=== PATIENT | female | born 1960 | race Caucasian/White ===

== ENCOUNTER 2019-09-28 12:38 | Outpatient (CLI) | payer OTHER, SELFPAY ==
[2019-09-28 16:59] LABS: Basophils % 0.5 %; Eosinophils # 0.2 10^3/uL (0.0-0.8); Eosinophils % 2.8 %; Hematocrit 36.5 % (37.0-47.0); Hemoglobin 11.9 g/dL (11.5-15.3); Lymphocytes # 1.9 10^3/uL (0.8-4.8); Lymphocytes % 29.8 %; Mean Corpuscular HGB Conc 32.6 g/dL (30.0-36.0); Mean Corpuscular Hemoglobin 31.7 pg (28.0-34.0); Mean Corpuscular Volume 97.3 fL (81-99); Monocytes # 0.6 10^3/uL (0.2-0.9); Monocytes % 9.8 %; Neutrophils # 3.6 10^3/uL (1.8-7.7); Neutrophils % 56.8 %; Nucleated Red Blood Cells % 0 %; Platelet Count 235 10^3/cmm (130-400); Red Blood Count 3.75 10^6/uL (4.1-5.3); Red Cell Distribution Width 12.6 % (12.1-15.1); White Blood Count 6.4 10^3/uL (4.0-10.0)
[2019-09-28 21:03] LABS: Alanine Aminotransferase 61 U/L (0-33); Albumin Level 4.1 g/dL (3.5-5.2); Alkaline Phosphatase 75 IU/L (35-105); Anion Gap 16.6 (5-19); Aspartate Amino Transferase 48 U/L (0-32); Blood Urea Nitrogen 15 mg/dL (8-23); Calcium 9.2 mg/dL (8.5-10.5); Carbon Dioxide 26 mmol/L (22-29); Chloride 101 mmol/L (98-107); Globulin 2.1 g/dL (1.3-4.6); Glomerular Filtration Rate 72.9 mL/min (90-130); Glucose 115 mg/dL (65-115); Lactate Dehydrogenase 240 U/L (135-214); Osmolality Calculated 287 mOsm/kg (285-295); Potassium 3.6 mmol/L (3.5-5.1); Sodium 140 mmol/L (136-145); Total Protein 6.2 g/dL (6.6-8.7)
== END 2019-09-28 12:39 | disposition home or self-care (01) ==
LOC: ONCMED 17:09
PROVIDERS: Family Provider Nurse Practitioner Family; PCP Nurse Practitioner Family; Visit Provider Internal Medicine Medical Oncology
DX: C81.90 Hodgkin lymphoma, unspecified, unspecified site (principal)
CPT/HCPCS: 36415; 80053; 83615; 85025

== ENCOUNTER 2019-10-26 11:40 | Outpatient (CLI) | payer OTHER, SELFPAY ==
--- NOTE | 2019-10-26 11:42 | MM_ITS ---
WS: [id number] SCREENING DIGITAL MAMMOGRAM WITH CAD HISTORY: SCREEN COMPARISON: 09/21/2018, 09/18/2017 and 09/17/2016 Bilateral CC and MLO views submitted. Computer aided detection analyzed. Breast composition: There are scattered areas of fibroglandular density. No suspicious masses, microc alcifications or architectural distortion. Benign calcifications in each breast. MM/[place] [id number] IMPRESSION: BI-RADS: 2-Benign FOLLOW UP: 1 Year Follow-up
== END 2019-10-26 11:41 | disposition home or self-care (01) ==
LOC: RADSHAW 11:40
PROVIDERS: Family Provider Nurse Practitioner Family; PCP Nurse Practitioner Family; Visit Provider Internal Medicine Medical Oncology
DX: Z12.31 Encounter for screening mammogram for malignant neoplasm of breast (principal)
CPT/HCPCS: 77067

== ENCOUNTER 2020-06-13 15:05 | Emergency (ER) | payer OTHER, SELFPAY ==
[2020-06-13 15:15] VITALS: BP 140/83; PULSE 76; RESP 16; TEMP 36.2; O2SAT 97; BMI 24.0
--- NOTE | 2020-06-13 17:03 | CTR_ITS ---
PROCEDURE INFORMATION: Exam: CT Lumbar Spine Without Contrast Exam date and time: 06/13/2020 5:31 PM Age: 59 years old Clinical indication: Low back pain; Prior surgery; Surgery type: Gb TECHNIQUE: Imaging protocol: Computed tomography images of the lumbar spine without contrast. Total images: 452 Radiation optimization: All CT scans at this facility use at least one of these dose optimization techniques: automated exposure control; mA and/or kV adjustment per patient size (includes targeted exams where dose is matched to clinical indication); or iterative reconstruction. COMPARISON: No relevant prior studies available. RADIATION DOSE METRICS: Total DLP (mGy-cm): 2133.2 FINDINGS: Vertebrae: No acute fracture. Normal alignment. No visible spondylolysis or spondylolisthesis. No visible significant facet arthrosis. No visible osteolytic or osteoblastic destructive process. Discs/Spinal canal/Neural foramina: Intervertebral disc space heights preserved. No significant disc protrusion. No severe spinal canal stenosis. No significant neural foraminal narrowing. Soft tissues: Unremarkable. CT/CT lumbar spine wo con* [id number] IMPRESSION: No acute findings. Radiation Dose CTDIVOL = (mGy): DLP = 2133.2 (mGy-cm)
[2020-06-13] MEDS: HYDROcodone-acetaminophen 5-325 mg Tablet 1 TAB PO (17:17)
[2020-06-13] MEDS: cyclobenzaprine 10 mg Tablet PO (17:19)
--- NOTE | 2020-06-13 17:37 | W.ED.BACK ---
HPI - Back Pain/Injury General: Chief Complaint: Back Pain/Injury Stated Complaint: back pain Time Seen by Provider: 06/13/20 16:49 Source: patient Mode of arrival: ambulatory Limitations: no limitations History of Present Illness: HPI Narrative: Marisol is a 59-year-old female who comes in complaining of back pain. Pain is located in the right SI area but radiates down the back of her leg to her knee. She denies any loss of bowel or bladder control. She denies any saddle anesthesia. She denies any abdominal pain, urinary symptoms or trauma. Describes the pain as a soreness but she will occasionally get sharp shooting pains. Patient denies having anything like this similarly in the past. Associated symptoms: Deny abdominal pain, chills, difficulty walking, dysuria, fatigue, fever(s), hematuria, nausea, syncope, urinary urgency or vomiting Review of Systems Const: Denies: fever(s), chills, body aches, fatigue, malaise or diaphoresis Eyes: Denies: change in vision, blurry vision, photophobia, eye discomfort, eye discharge, eye redness or yellow eyes ENMT: Denies: throat pain, odynophagia, hoarseness, swelling of lips/tongue, ear or mastoid pain, ear discharge, change in hearing or nasal discharge Card: Denies: chest pain, palpitations, irregular heart rhythm, edema, lightheadedness, syncope, pre-syncope, dyspnea on exertion or orthopnea Resp: Denies: dyspnea, productive cough, non-productive cough, wheezing, hemoptysis or chest congestion GI: Denies: abdominal pain, nausea, vomiting, hematemesis, coffee ground emesis, heartburn, diarrhea, constipation, GI cramping, hematochezia or melena : Denies: flank pain, dysuria, urinary frequency, urinary urgency or hematuria Musc: Reports: back pain; Denies: neck pain, extremity pain, extremity swelling, joint pain, joint swelling, joint redness, joint warmth or joint stiffness Skin/Breast: Denies: rash, pruritus, erythema, skin pain or skin tenderness Neuro: Denies: headache(s), numbness in extremities, weakness in extremities, sensory changes, lack of coordination, difficulty walking, dizziness, vertigo, confusion, Slurred speech present or seizure-like activity Cornell/Lymph: Denies: easy bruising, easy bleeding, petechiae, purpura or enlarged lymph nodes All/Imm: Denies: urticaria, throat swelling, tongue swelling, facial swelling or acute wheezing PFSH ED PFSH: Surgical History H/O: hysterectomy History of appendectomy History of cholecystectomy Family History Other CAD (coronary artery disease) Cancer Social History Smoking and tobacco status: never smoked Alcohol intake: never Substance/Drug Use: never Lives independently: Yes Marital status: Physical Exam Const: COMMON NORMALS: no acute distress, patient oriented x3, no limitations and alert GENERAL APPEARANCE: cooperative HENMT: COMMON NORMALS: normocephalic, atraumatic, external ears normal, EAC's normal and Normal external nose present HEAD & SCALP: normal to inspection, normocephalic and atraumatic FACE & SINUS: normal facial exam and face symmetric NOSE: Normal external nose present and Normal nares present EXTERNAL EAR: Yes external ears normal EXTERNAL AUDITORY CANAL: EAC's normal MOUTH: Normal oral and palatal mucosa present, lip normal and tongue normal Eye: COMMON NORMALS: Equal, round and reactive pupils present and conjunctivae normal GENERAL EYE: appearance normal, both eyes and all related structures ALIGNMENT: Yes alignment normal PERIORBITAL: periorbital findings normal EYELID: eyelids normal CONJUNCTIVA: Yes conjunctivae normal SCLERA: sclerae normal PUPIL: Yes Equal, round and reactive pupils present Neck/C-Spine: COMMON NORMALS: full ROM, no lymphadenopathy, supple, no meningeal signs and no JVD GENERAL: Yes normal visual inspection and Yes trachea midline Chest: COMMONS NORMALS: normal inspection of the chest and normal palpation of entire chest wall Resp: COMMON NORMALS: normal respiratory effort, No retractions, No use of accessory muscles and clear to auscultation bilaterally EFFORT & INSPECTION: Yes able to speak in complete sentences and Yes symmetric chest movement AUSCULTATION: clear to auscultation bilaterally, no crackles, no rales, no rhonchi and no wheezes Cardio: COMMON NORMALS: no JVD, regular rate, regular rhythm, S1 normal heart sound present and S2 normal heart sound present RATE: regular rate RHYTHM: regular rhythm HEART SOUNDS: S1 normal heart sound present, S2 normal heart sound present, no click, no gallops, no murmurs and no rubs GI: COMMON NORMALS: Soft to palpation and No hepatosplenomegaly present PALPATION: Yes Soft to palpation, No Tenderness to palpation present (GI), No Guarding due to palpation present (GI), No Rigid due to palpation, Yes No hepatosplenomegaly present, No Hernia present, No Palpable mass present and No Pulsatile mass present : COMMON NORMALS: Yes no CVA tenderness BLADDER/KIDNEY EXAM: Yes no CVA tenderness EXTERNAL FEMALE EXAM: No Hernia present Back/Pelvis: COMMON NORMALS: no CVA tenderness, thoracic and lumbar spine normal to inspection, no thoracic nor lumbar tenderness and thoraco-lumbar ROM normal Extremity: COMMON NORMALS: normal to inspection, full ROM, capillary refill normal, no joint enlargement, no clubbing, cyanosis or edema and no calf tenderness Neuro: COMMON NORMALS: patient oriented x3, CN's II-XII intact bilaterally, moves all extremities, no focal motor deficits and no sensory deficits noted SENSORIUM/ORIENTATION: Yes alert MENINGEAL SIGNS: Yes no meningeal signs SPEECH: speech normal Psych: COMMON NORMALS: mental status grossly normal, Normal thought process present, cooperative, normal affect, speech normal and activity/motor behavior normal SPEECH: Yes normal speech THOUGHT PROCESS: Normal thought process present Skin: COMMON NORMALS: no rashes or lesions noted, turgor normal, no jaundice, no petechiae and no mottling GENERAL SKIN EXAM: no rashes or lesions noted and turgor normal Course Vital Signs: Vital signs: Vital Signs Temperature 97.1 F L 06/13/20 15:15 Pulse Rate 76 06/13/20 15:15 Respiratory Rate 16 06/13/20 15:15 Blood Pressure 140/83 06/13/20 15:15 Pulse Oximetry 97 06/13/20 15:15 MDM - Back Pain/Injury MDM Narrative: Medical decision making narrative: Patient is relieved to hear there is no recurrence of her cancer. I see no sign of CRAFTI as a cause for her pain. I will go and discharge her home with medicine for muscle relaxation, pain and anti-inflammatories. She agrees to return should her symptoms change or worsen but at this time I see no red flags or indication for further work-up or evaluation and care. Lab Data: Attestation: I reviewed the patient's lab results. Labs: Lab Results 06/13/20 Range/Units 17:29 Urine Color Yellow (Yellow) Urine Appearance Clear (CLEAR) Urine pH 5 (5-7) Ur Specific Gravit y 1.020 (1.005-1.030) Urine Protein Neg (Negative) Urine Glucose (UA) Norm (Normal) Urine Ketones Negative (Negative) Urine Blood Neg (Negative) Urine Nitrate Negative (Negative) Urine Bilirubin 1+ H (Negative) Urine Urobilinogen 1 H (Negative) mg/dL Ur Leukocyte Jannette ase Negative (Negative) Imaging Data^: CT Lumbar Spine: Radiologist's impression: [id number] [address] [address] Scan Report Signed Patient: Marisol Engel Unit #: [id number] : 1960 Age/Sex: 59 / F ADM Date: 06/13/20 Loc: ER Room/Bed: Attending Dr: Ordering Provider/Ordering MD: Marzena Jose DO Date of Service: 06/13/20 Procedure(s): CT lumbar spine wo con* [id number] Accession Number(s): [id number] Report Number: [id number] PROCEDURE INFORMATION: Exam: CT Lumbar Spine Without Contrast Exam date and time: 06/13/2020 5:31 PM Age: 59 years old Clinical indication: Low back pain; Prior surgery; Surgery type: Gb TECHNIQUE: Imaging protocol: Computed tomography images of the lumbar spine without contrast. Total images: 452 Radiation optimization: All CT scans at this facility use at least one of these dose optimization techniques: automated exposure control; mA and/or kV adjustment per patient size (includes targeted exams where dose is matched to clinical indication); or iterative reconstruction. COMPARISON: No relevant prior studies available. RADIATION DOSE METRICS: Total DLP (mGy-cm): 2133.2 FINDINGS: Vertebrae: No acute fracture. Normal alignment. No visible spondylolysis or spondylolisthesis. No visible significant facet arthrosis. No visible osteolytic or osteoblastic destructive process. Discs/Spinal canal/Neural foramina: Intervertebral disc space heights preserved. No significant disc protrusion. No severe spinal canal stenosis. No significant neural foraminal narrowing. Soft tissues: Unremarkable. CT/CT lumbar spine wo con* [id number] IMPRESSION: No acute findings. Radiation Dose CTDIVOL = (mGy): DLP = 2133.2 (mGy-cm) Dictated By: Dwayne Pascual Signed By: Dwayne Pascual Signed Date/Time: 06/13/201831 DD/ 29 Discharge Plan Discharge Patient Disposition: Home Clinical Impression: Back pain Condition: Stable Prescriptions: New hydrocodone-acetaminophen [Mckenney] 5-325 mg tablet 1 tab PO Q6H PRN (Reason: pain) 5 Days Qty: 20 RF: 0 naproxen 250 mg tablet 500 mg PO BID PRN (Reason: pain) Qty: 20 RF: 0 cyclobenzaprine 10 mg tablet 10 mg PO TID PRN (Reason: muscle spasm) Qty: 30 RF: 0 No Action montelukast [Singulair] 10 mg tablet 10 mg PO DAILY@2100 RF: 0 potassium chloride 10 mEq capsule, extended release 10 meq PO DAILY@0600 RF: 0 lisinopril 5 mg tablet 5 mg PO DAILY@0600 RF: 0 B Complex Tablet Extended Release 1 tab PO DAILY@0600 RF: 0 Mg-Fadi-Zinc 1 tab PO DAILY@0600 RF: 0 Discharge Orders: Discharge ED (Routine); Ordered 06/13/20 Ordered By: Marzena Jose Referrals: Sandrine Sandoval FNP-C [Primary Care Provider] - 1-3 days Discharge Diet: Advance as tolerated Discharge Activity: Increase activity as tolerated Patient Instructions: Back Pain (ED) Activity Restrictions/Additional Instructions: Please return to the ER immediately for any of the signs or symptoms listed on your discharge instruction sheets, worsening/changing of your symptoms, you are not getting better as quickly as expected, or for ANY other cause or concerns. Return to the ER for increased back pain, loss of bowel or bladder control, fever, abdominal pain, vomiting, numbness or weakness in your legs, or for any other cause for concern. Coding Level of Care Code ED Ticketing Agent for Shoaib Fwd Exam Comprehensive
[2020-06-13 18:28] LABS: Add Urine Microscopic? NO
[2020-06-13 18:34] LABS: Bilirubin Urine 1+ (Negative); Blood Urine Neg (Negative); Glucose Urine UA Norm (Normal); Ketones Urine Negative (Negative); Leukocyte Esterase Urine Negative (Negative); Nitrate Urine Negative (Negative); Protein Urine Neg (Negative); Urine Appearance Clear (CLEAR); Urine Color Yellow (Yellow); Urobilinogen Urine 1 mg/dL (Negative); pH Urine 5 (5-7)
[2020-06-13 19:04] VITALS: BP 123/70; PULSE 70; O2SAT 96
== END 2020-06-13 19:10 | disposition home or self-care (01) ==
PROVIDERS: Emergency Provider Emergency Medicine; PCP Nurse Practitioner Family
DX: M54.9 Dorsalgia, unspecified (principal)
CPT/HCPCS: 12345; 72131; 81003; 99281; 99283

== ENCOUNTER → 2020-09-29 14:01 | Outpatient (BNVA) | payer OTHER, SELFPAY | PROVIDERS: PCP Nurse Practitioner Family; Visit Provider Nurse Practitioner Family | DX: R39.9 Unspecified symptoms and signs involving the genitourinary system (principal); M54.5 Low back pain | CPT/HCPCS: 81000 ==

== ENCOUNTER → 2020-10-02 10:29 | Outpatient (BNVA) | payer OTHER, SELFPAY | PROVIDERS: PCP Nurse Practitioner Family; Visit Provider Nurse Practitioner Family | DX: R53.83 Other fatigue (principal); H65.193 Other acute nonsuppurative otitis media, bilateral; I10 Essential (primary) hypertension; J30.89 Other allergic rhinitis | CPT/HCPCS: 80053; 82306; 82607; 83550; 85025 ==

== ENCOUNTER 2020-10-05 16:07 | Emergency (ER) | payer OTHER, SELFPAY ==
[2020-10-05 16:14] VITALS: BP 128/85; PULSE 75; RESP 14; TEMP 35.7; O2SAT 100; BMI 24.9
--- NOTE | 2020-10-05 16:42 | PC.NURSE ---
BS checked POC- 134.
[2020-10-05 16:46] LABS: Glucose Point of Care 134 mg/dL (70-110)
[2020-10-05 17:33] VITALS: BP 140/89; PULSE 63; O2SAT 99
--- NOTE | 2020-10-05 17:50 | W.ED.WEAKNES ---
Documented by User: Weston Lewis DO 10/06/20 10:18 HPI - Weakness General: Chief complaint: Weakness Stated complaint: WEAK, N/V/D, NUMBNESS IN HANDS/LEGS Time Seen by Provider: 10/05/20 17:13 History of Present Illness: HPI Narrative: 60-year-old female comes in complaining of just feeling weak and fatigued for the last 2 weeks. She had recently seen her PCP and was told she was vitamin D deficient and was started on medication for that today she is complaining of generalized vague nausea with one episode of vomiting this morning fatigue and weakness numbness and tingling in her legs. She denies chest pain or shortness of breath no specific abdominal pain no dysuria urgency or frequency. No hematemesis coffee-ground emesis MD Complaint: generalized weakness and lack of energy Onset (ago): day(s) Duration: constant Location: generalized Migration: none Severity: mild Quality: aching Relieving factors: none Exacerbating factors: none Associated symptoms: Denies chest pain, chills, confusion, melena, decreased appetite, diaphoresis, dysuria, easy bruising, fever(s), headache(s), myalgias, nausea, rash, short of breath, syncope or vomiting Review of Systems Const: Denies: fever(s), chills or diaphoresis ENMT: Denies: throat pain, ear or mastoid pain, nasal discharge or nasal congestion Card: Denies: chest pain or syncope Resp: Denies: dyspnea, productive cough or non-productive cough GI: Denies: nausea, vomiting or melena : Denies: dysuria Skin/Breast: Denies: rash or pruritus Neuro: Denies: headache(s) or confusion Cornell/Lymph: Denies: easy bruising PFSH ED PFSH: Surgical History H/O: hysterectomy History of appendectomy History of cholecystectomy Family History Other CAD (coronary artery disease) Cancer Social History Smoking and tobacco status: never smoked Alcohol intake: never Adopted: No Lives independently: Yes Household members: none Housing: House Marital status: Number of children: 2 Highest education level completed: High School Graduate service: No Current occupational status: employed Pets and animals: No Current gender identity: Female Physical Exam Const: COMMON NORMALS: no acute distress GENERAL APPEARANCE: cooperative and comfortable ORIENTATION/CONSCIOUSNESS: Yes awake, Yes oriented to person, Yes oriented to place and Yes oriented to time HENMT: COMMON NORMALS: normocephalic, atraumatic, hearing grossly normal bilaterally, external ears normal, EAC's normal, TM's normal bilaterally, Normal nasal mucous membranes and turbinates present, moist oral mucous membranes and oropharynx normal HEAD & SCALP: normocephalic and atraumatic NOSE: Normal nasal mucous membranes and turbinates present EXTERNAL EAR: Yes external ears normal EXTERNAL AUDITORY CANAL: EAC's normal TYMPANIC MEMBRANE: TM's normal bilaterally Eye: COMMON NORMALS: Equal, round and reactive pupils present, EOMs intact bilaterally, conjunctivae normal and no scleral icterus CONJUNCTIVA: Yes conjunctivae normal PUPIL: Yes Equal, round and reactive pupils present Neck/C-Spine: COMMON NORMALS: no JVD Resp: COMMON NORMALS: normal respiratory effort, No retractions, No use of accessory muscles and clear to auscultation bilaterally AUSCULTATION: clear to auscultation bilaterally Cardio: COMMON NORMALS: no JVD, regular rate, regular rhythm and No murmurs present (Cardio) RATE: regular rate RHYTHM: regular rhythm GI: COMMON NORMALS: Soft to palpation and No hepatosplenomegaly present AUSCULTATION: Yes normoactive bowel sounds PALPATION: Yes Soft to palpation, No Tenderness to palpation present (GI), No Guarding due to palpation present (GI) and Yes No hepatosplenomegaly present Extremity: COMMON NORMALS: normal to inspection, capillary refill normal, no clubbing, cyanosis or edema, no calf tenderness and no pedal edema Neuro: SENSORIUM/ORIENTATION: Yes oriented to person, Yes oriented to place and Yes oriented to time Skin: COMMON NORMALS: no rashes or lesions noted GENERAL SKIN EXAM: no rashes or lesions noted Course Vital Signs: Vital signs: Vital Signs Temperature 96.3 F L 10/05/20 16:14 Pulse Rate 66 10/05/20 21:00 Respiratory Rate 18 10/05/20 19:16 Blood Pressure 117/63 10/05/20 21:00 Pulse Oximetry 98 10/05/20 21:00 MDM - Weakness MDM Narrative: Medical decision making narrative: Care turned over to Dr. Wilson at change of shift see his notes for final diagnosis and disposition Lab Data: Labs: Lab Results 10/05/20 10/05/20 10/05/20 Range/Units 16:40 16:46 18:48 WBC 18.8 H (4.0-10.0) 10^3/ uL RBC 5.20 (4.1-5.3) 10^6/u L Hgb 16.5 H (11.5-15.3) g/dL Hct 49.8 H (37.0-47.0) % MCV 95.8 (81-99) fL MCH 31.7 (28.0-34.0) pg MCHC 33.1 (30.0-36.0) g/dL RDW 12.1 (12.1-15.1) % Plt Count 377 (130-400) 10^3/c mm MPV 9.2 (7.4-10.4) fL Neut % (Auto) 61.4 % Lymph % (Auto) 27.1 % [place] % (Auto) 8.2 % Eos % (Auto) 0.5 % Baso % (Auto) 0.3 % Neut # (Auto) 11.55 H (1.8-7.7) 10^3/u L Lymph # (Auto) 5.1 H (0.8-4.8) 10^3/u L [place] # (Auto) 1.5 H (0.2-0.9) 10^3/u L Eos # (Auto) 0.1 (0.0-0.8) 10^3/u L Baso # (Auto) 0.1 (0.0-0.1) 10^3/u L Nucleated RBC % (a uto) 0 % Nucleated RBCs # 0.0 /100WBC Sodium (136-145) mmol/L Potassium (3.5-5.1) mmol/L Chloride (98-107) mmol/L Carbon Dioxide (22-29) mmol/L Anion Gap (5-19) BUN (8-23) mg/dL Creatinine (0.5-0.9) mg/dL GFR Calculation (90-130) mL/min Glucose (65-115) mg/dL POC Glucose 134 H (70-110) mg/dL Calculated Osmolal ity (285-295) mOsm/k g Calcium (8.5-10.5) mg/dL Total Bilirubin (0.15-1.2) mg/dL AST (0-32) U/L ALT (0-33) U/L Alkaline Phosphata se (35-105) IU/L Lactate Dehydrogen ase (135-214) U/L Creatine Kinase (26-192) U/L Total Protein (6.6-8.7) g/dL Albumin (3.5-5.2) g/dL Globulin (1.3-4.6) g/dL Lipase (13-60) U/L TSH (0.27-4.20) uIU/ mL Urine Color Yellow (Yellow) Urine Appearance Clear (CLEAR) Urine pH 5 (5-7) Ur Specific Gravit y 1.020 (1.005-1.030) Urine Protein Neg (Negative) Urine Glucose (UA) Norm (Normal) Urine Ketones Negative (Negative) Urine Blood Neg (Negative) Urine Nitrate Negative (Negative) Urine Bilirubin Neg (Negative) Urine Urobilinogen Norm (Negative) mg/dL Ur Leukocyte Jannette ase 1+ H (Negative) Urine RBC 0-4 H (0-2) /hpf Urine WBC 10-15 H (0-5) /hpf Ur Squamous Epith Cells 10-15 H (0-5) /hpf Calcium Oxalate Cr ystal 15-25 H /hpf Amorphous Sediment Not Reportable Urine Bacteria 1+ H (NONE) /hpf Hyaline Casts 0-4 H /lpf Urine Mucus 2+ /hpf 10/05/20 10/05/20 Range/Units 18:48 18:48 WBC (4.0-10.0) 10^3/ uL RBC (4.1-5.3) 10^6/u L Hgb (11.5-15.3) g/dL Hct (37.0-47.0) % MCV (81-99) fL MCH (28.0-34.0) pg MCHC (30.0-36.0) g/dL RDW (12.1-15.1) % Plt Count (130-400) 10^3/c mm MPV (7.4-10.4) fL Neut % (Auto) % Lymph % (Auto) % [place] % (Auto) % Eos % (Auto) % Baso % (Auto) % Neut # (Auto) (1.8-7.7) 10^3/u L Lymph # (Auto) (0.8-4.8) 10^3/u L [place] # (Auto) (0.2-0.9) 10^3/u L Eos # (Auto) (0.0-0.8) 10^3/u L Baso # (Auto) (0.0-0.1) 10^3/u L Nucleated RBC % (a uto) % Nucleated RBCs # /100WBC Sodium 137 (136-145) mmol/L Potassium 3.5 (3.5-5.1) mmol/L Chloride 96 L (98-107) mmol/L Carbon Dioxide 33 H (22-29) mmol/L Anion Gap 11.5 (5-19) BUN 20 (8-23) mg/dL Creatinine 0.8 (0.5-0.9) mg/dL GFR Calculation 72.7 L (90-130) mL/min Glucose 100 (65-115) mg/dL POC Glucose (70-110) mg/dL Calculated Osmolal ity 287 (285-295) mOsm/k g Calcium 8.8 (8.5-10.5) mg/dL Total Bilirubin 0.8 (0.15-1.2) mg/dL AST 42 H (0-32) U/L ALT 96 H (0-33) U/L Alkaline Phosphata se 80 (35-105) IU/L Lactate Dehydrogen ase 180 (135-214) U/L Creatine Kinase 29 (26-192) U/L Total Protein 6.8 (6.6-8.7) g/dL Albumin 4.2 (3.5-5.2) g/dL Globulin 2.6 (1.3-4.6) g/dL Lipase 39 (13-60) U/L TSH 3.04 (0.27-4.20) uIU/ mL Urine Color (Yellow) Urine Appearance (CLEAR) Urine pH (5-7) Ur Specific Gravit y (1.005-1.030) Urine Protein (Negative) Urine Glucose (UA) (Normal) Urine Ketones (Negative) Urine Blood (Negative) Urine Nitrate (Negative) Urine Bilirubin (Negative) Urine Urobilinogen (Negative) mg/dL Ur Leukocyte Jannette ase (Negative) Urine RBC (0-2) /hpf Urine WBC (0-5) /hpf Ur Squamous Epith Cells (0-5) /hpf Calcium Oxalate Cr ystal /hpf Amorphous Sediment Urine Bacteria (NONE) /hpf Hyaline Casts /lpf Urine Mucus /hpf Discharge Plan Discharge Patient Disposition: Home Clinical Impression: Weakness, Nausea Condition: Stable Prescriptions: New ondansetron 4 mg tablet,disintegrating 4 mg PO Q6H PRN (Reason: nausea and vomiting) Qty: 14 RF: 0 No Action montelukast [Singulair] 10 mg tablet 10 mg PO DAILY@2100 30 Days Qty: 30 RF: 11 prednisone 20 mg tablet 20 mg PO BID 3 Days Qty: 6 RF: 0 cyclobenzaprine 5 mg tablet 5 mg PO BEDTIME RF: 0 cholecalciferol (vitamin D3) 1,250 mcg (50,000 unit) capsule 50,000 unit PO Q7D RF: 0 B Complex Tablet Extended Release 1 tab PO DAILY@0600 RF: 0 Mg-Fadi-Zinc 1 tab PO DAILY@0600 RF: 0 lisinopril 5 mg tablet 5 mg PO DAILY@0600 30 Days Qty: 30 RF: 11 potassium chloride 10 mEq capsule, extended release 10 meq PO DAILY@0600 30 Days Qty: 30 RF: 11 Discharge Orders: Discharge ED (Routine); Ordered 10/05/20 Ordered By: Jen Wilson Referrals: Sandrine Sandoval FNP-C [Primary Care Provider] - 1-3 days Discharge Diet: Advance as tolerated Discharge Activity: Resume usual activity Patient Instructions: Weakness (ED) Coding Level of Care Code ED Electric Appliance Installer for Chg Fwd Documented by User: Jen Wilson MD 10/05/20 21:09 HPI - Weakness General: Chief complaint: Weakness Stated complaint: WEAK, N/V/D, NUMBNESS IN HANDS/LEGS Time Seen by Provider: 10/05/20 17:13 PFSH ED PFSH: Surgical History H/O: hysterectomy History of appendectomy History of cholecystectomy Family History Other CAD (coronary artery disease) Cancer Social History Smoking and tobacco status: never smoked Alcohol intake: never Adopted: No Lives independently: Yes Household members: none Housing: House Marital status: Number of children: 2 Highest education level completed: High School Graduate service: No Current occupational status: employed Pets and animals: No Current gender identity: Female Course Vital Signs: Vital signs: Vital Signs Temperature 96.3 F L 10/05/20 16:14 Pulse Rate 66 10/05/20 21:00 Respiratory Rate 18 10/05/20 19:16 Blood Pressure 117/63 10/05/20 21:00 Pulse Oximetry 98 10/05/20 21:00 MDM - Weakness MDM Narrative: Medical decision making narrative: Patient presents with generalized weakness, nausea. Patient is well-appearing here with normal vital signs. She does have a leukocytosis but she has been on steroids likely causing this leukocytosis. She has no signs of any infection. No signs of meningitis. She is stable for discharge and is to follow-up with PCP and return if worsening. Lab Data: Labs: Lab Results 10/05/20 10/05/20 10/05/20 Range/Units 16:40 16:46 18:48 WBC 18.8 H (4.0-10.0) 10^3/ uL RBC 5.20 (4.1-5.3) 10^6/u L Hgb 16.5 H (11.5-15.3) g/dL Hct 49.8 H (37.0-47.0) % MCV 95.8 (81-99) fL MCH 31.7 (28.0-34.0) pg MCHC 33.1 (30.0-36.0) g/dL RDW 12.1 (12.1-15.1) % Plt Count 377 (130-400) 10^3/c mm MPV 9.2 (7.4-10.4) fL Neut % (Auto) 61.4 % Lymph % (Auto) 27.1 % [place] % (Auto) 8.2 % Eos % (Auto) 0.5 % Baso % (Auto) 0.3 % Neut # (Auto) 11.55 H (1.8-7.7) 10^3/u L Lymph # (Auto) 5.1 H (0.8-4.8) 10^3/u L [place] # (Auto) 1.5 H (0.2-0.9) 10^3/u L Eos # (Auto) 0.1 (0.0-0.8) 10^3/u L Baso # (Auto) 0.1 (0.0-0.1) 10^3/u L Nucleated RBC % (a uto) 0 % Nucleated RBCs # 0.0 /100WBC Sodium (136-145) mmol/L Potassium (3.5-5.1) mmol/L Chloride (98-107) mmol/L Carbon Dioxide (22-29) mmol/L Anion Gap (5-19) BUN (8-23) mg/dL Creatinine (0.5-0.9) mg/dL GFR Calculation (90-130) mL/min Glucose (65-115) mg/dL POC Glucose 134 H (70-110) mg/dL Calculated Osmolal ity (285-295) mOsm/k g Calcium (8.5-10.5) mg/dL Total Bilirubin (0.15-1.2) mg/dL AST (0-32) U/L ALT (0-33) U/L Alkaline Phosphata se (35-105) IU/L Lactate Dehydrogen ase (135-214) U/L Creatine Kinase (26-192) U/L Total Protein (6.6-8.7) g/dL Albumin (3.5-5.2) g/dL Globulin (1.3-4.6) g/dL Lipase (13-60) U/L TSH (0.27-4.20) uIU/ mL Urine Color Yellow (Yellow) Urine Appearance Clear (CLEAR) Urine pH 5 (5-7) Ur Specific Gravit y 1.020 (1.005-1.030) Urine Protein Neg (Negative) Urine Glucose (UA) Norm (Normal) Urine Ketones Negative (Negative) Urine Blood Neg (Negative) Urine Nitrate Negative (Negative) Urine Bilirubin Neg (Negative) Urine Urobilinogen Norm (Negative) mg/dL Ur Leukocyte Jannette ase 1+ H (Negative) Urine RBC 0-4 H (0-2) /hpf Urine WBC 10-15 H (0-5) /hpf Ur Squamous Epith Cells 10-15 H (0-5) /hpf Calcium Oxalate Cr ystal 15-25 H /hpf Amorphous Sediment Not Reportable Urine Bacteria 1+ H (NONE) /hpf Hyaline Casts 0-4 H /lpf Urine Mucus 2+ /hpf 10/05/20 10/05/20 Range/Units 18:48 18:48 WBC (4.0-10.0) 10^3/ uL RBC (4.1-5.3) 10^6/u L Hgb (11.5-15.3) g/dL Hct (37.0-47.0) % MCV (81-99) fL MCH (28.0-34.0) pg MCHC (30.0-36.0) g/dL RDW (12.1-15.1) % Plt Count (130-400) 10^3/c mm MPV (7.4-10.4) fL Neut % (Auto) % Lymph % (Auto) % [place] % (Auto) % Eos % (Auto) % Baso % (Auto) % Neut # (Auto) (1.8-7.7) 10^3/u L Lymph # (Auto) (0.8-4.8) 10^3/u L [place] # (Auto) (0.2-0.9) 10^3/u L Eos # (Auto) (0.0-0.8) 10^3/u L Baso # (Auto) (0.0-0.1) 10^3/u L Nucleated RBC % (a uto) % Nucleated RBCs # /100WBC Sodium 137 (136-145) mmol/L Potassium 3.5 (3.5-5.1) mmol/L Chloride 96 L (98-107) mmol/L Carbon Dioxide 33 H (22-29) mmol/L Anion Gap 11.5 (5-19) BUN 20 (8-23) mg/dL Creatinine 0.8 (0.5-0.9) mg/dL GFR Calculation 72.7 L (90-130) mL/min Glucose 100 (65-115) mg/dL POC Glucose (70-110) mg/dL Calculated Osmolal ity 287 (285-295) mOsm/k g Calcium 8.8 (8.5-10.5) mg/dL Total Bilirubin 0.8 (0.15-1.2) mg/dL AST 42 H (0-32) U/L ALT 96 H (0-33) U/L Alkaline Phosphata se 80 (35-105) IU/L Lactate Dehydrogen ase 180 (135-214) U/L Creatine Kinase 29 (26-192) U/L Total Protein 6.8 (6.6-8.7) g/dL Albumin 4.2 (3.5-5.2) g/dL Globulin 2.6 (1.3-4.6) g/dL Lipase 39 (13-60) U/L TSH 3.04 (0.27-4.20) uIU/ mL Urine Color (Yellow) Urine Appearance (CLEAR) Urine pH (5-7) Ur Specific Gravit y (1.005-1.030) Urine Protein (Negative) Urine Glucose (UA) (Normal) Urine Ketones (Negative) Urine Blood (Negative) Urine Nitrate (Negative) Urine Bilirubin (Negative) Urine Urobilinogen (Negative) mg/dL Ur Leukocyte Jannette ase (Negative) Urine RBC (0-2) /hpf Urine WBC (0-5) /hpf Ur Squamous Epith Cells (0-5) /hpf Calcium Oxalate Cr ystal /hpf Amorphous Sediment Urine Bacteria (NONE) /hpf Hyaline Casts /lpf Urine Mucus /hpf EKG Data^: EKG 1: Attestation: I personally reviewed and interpreted this EKG as follows: EKG interpretation date: 10/05/20 EKG interpretation time: 18:53 Interpretation: nsr hr [address] or t wave abnormalities qrs 82 qtc 386 Discharge Plan Discharge Patient Disposition: Home Clinical Impression: Weakness, Nausea Condition: Stable Prescriptions: New ondansetron 4 mg tablet,disintegrating 4 mg PO Q6H PRN (Reason: nausea and vomiting) Qty: 14 RF: 0 No Action montelukast [Singulair] 10 mg tablet 10 mg PO DAILY@2100 30 Days Qty: 30 RF: 11 prednisone 20 mg tablet 20 mg PO BID 3 Days Qty: 6 RF: 0 cyclobenzaprine 5 mg tablet 5 mg PO BEDTIME RF: 0 cholecalciferol (vitamin D3) 1,250 mcg (50,000 unit) capsule 50,000 unit PO Q7D RF: 0 B Complex Tablet Extended Release 1 tab PO DAILY@0600 RF: 0 Mg-Fadi-Zinc 1 tab PO DAILY@0600 RF: 0 lisinopril 5 mg tablet 5 mg PO DAILY@0600 30 Days Qty: 30 RF: 11 potassium chloride 10 mEq capsule, extended release 10 meq PO DAILY@0600 30 Days Qty: 30 RF: 11 Discharge Orders: Discharge ED (Routine); Ordered 10/05/20 Ordered By: Jen Wilson Referrals: Sandrine Sandoval FNP-C [Primary Care Provider] - 1-3 days Discharge Diet: Advance as tolerated Discharge Activity: Resume usual activity Patient Instructions: Weakness (ED) Coding Level of Care Code ED Electric Appliance Installer for Shoaib Saleem
--- NOTE | 2020-10-05 17:52 | XR_ITS ---
WS: [id number] Portable AP upright chest, 10/05/2020 Clinical Data: dyspnea/cough Comparison: PA and lateral chest, 03/14/2017. Findings: No nodules, masses or effusions are seen. The heart is normal. The pulmonary vascularity is not increased. No pneumonia or pneumothorax is seen. There are clips in right upper quadrant from a cholecystectomy. XR/XR chest 1V portable [id number] Impression: Negative chest.
--- NOTE | 2020-10-05 17:52 | ECG_ITS ---
[facility] Test Date: 2020-10-05 Pat Name: Marisol Engel Department: Room: Gender: Female Tool Builder: : 1960 Requested By: Weston Monzon Order Number: [id number] Shannan MD: Yosef Vazquez M.D. Measurements Intervals [place] Rate: 63 P: 51 MI: 152 QRS: 8 QRSD: 82 T: 52 QT: 379 QTc: 389 Interpretive Statements SINUS RHYTHM POSSIBLE ANTERIOR MYOCARDIAL INFARCTION [30 ms Q WAVE IN V3/V4, OR R < 0.2 mV IN V4], PROBABLY OLD Compared to ECG 12/19/2016 11:06:44 Myocardial infarct finding now present Sinus bradycardia no longer present Electronically Signed On 10-06-2020 20:55:26 CDT by Yosef Vazquez M.D. [id number] f
[2020-10-05] MEDS: sodium chlor 0.9% + KCl 20 mEq 20 MEQ/1,000 ML BAG 125 MEQ IV (18:21)
[2020-10-05] MEDS: ondansetron 2 mg/ML SDV 2 mL 4 MG IVP (18:21)
[2020-10-05 18:31] VITALS: BP 136/80; PULSE 66; O2SAT 97
[2020-10-05 18:53] LABS: Basophils # 0.1 10^3/uL (0.0-0.1); Basophils % 0.3 %; Eosinophils # 0.1 10^3/uL (0.0-0.8); Eosinophils % 0.5 %; Hematocrit 49.8 % (37.0-47.0); Hemoglobin 16.5 g/dL (11.5-15.3); Lymphocytes # 5.1 10^3/uL (0.8-4.8); Lymphocytes % 27.1 %; Mean Corpuscular HGB Conc 33.1 g/dL (30.0-36.0); Mean Corpuscular Hemoglobin 31.7 pg (28.0-34.0); Mean Corpuscular Volume 95.8 fL (81-99); Mean Platelet Volume 9.2 fL (7.4-10.4); Monocytes # 1.5 10^3/uL (0.2-0.9); Monocytes % 8.2 %; Neutrophils # 11.55 10^3/uL (1.8-7.7); Neutrophils % 61.4 %; Nucleated Red Blood Cells % 0 %; Platelet Count 377 10^3/cmm (130-400); Red Cell Distribution Width 12.1 % (12.1-15.1); White Blood Count 18.8 10^3/uL (4.0-10.0)
--- NOTE | 2020-10-05 19:10 | CTR_ITS ---
PROCEDURE INFORMATION: Exam: CT Head Without Contrast Exam date and time: 10/05/2020 7:16 PM Age: 60 years old Clinical indication: Dizziness; Patient HX: Dizzy, weakness, n/v/d, fluid behind ears TECHNIQUE: Imaging protocol: Computed tomography of the head without contrast. Total images: 185 Radiation optimization: All CT scans at this facility use at least one of these dose optimization techniques: automated exposure control; mA and/or kV adjustment per patient size (includes targeted exams where dose is matched to clinical indication); or iterative reconstruction. COMPARISON: CT head wo con* [id number] 08/20/2016 1:22 PM RADIATION DOSE METRICS: Total DLP (mGy-cm): 750.99 FINDINGS: Brain: Normal. No hemorrhage. Unremarkable white matter. No mass effect. Cerebral ventricles: No ventriculomegaly. Bones/joints: Unremarkable. No acute fracture. Paranasal sinuses: Visualized sinuses are unremarkable. No fluid levels. Mastoid air cells: Visualized mastoid air cells are well aerated. Soft tissues: Unremarkable. CT/CT head wo con* [id number] IMPRESSION: No acute intracranial abnormality. Radiation Dose CTDIVOL = (mGy): DLP = 750.99 (mGy-cm)
[2020-10-05 19:16] VITALS: BP 117/66; PULSE 60; RESP 18; O2SAT 99
--- NOTE | 2020-10-05 19:17 | PC.NURSE ---
patient to CT
--- NOTE | 2020-10-05 19:26 | PC.NURSE ---
patient back from CT
[2020-10-05 19:31] LABS: Alanine Aminotransferase 96 U/L (0-33); Albumin Level 4.2 g/dL (3.5-5.2); Alkaline Phosphatase 80 IU/L (35-105); Anion Gap 11.5 (5-19); Aspartate Amino Transferase 42 U/L (0-32); Blood Urea Nitrogen 20 mg/dL (8-23); Calcium 8.8 mg/dL (8.5-10.5); Carbon Dioxide 33 mmol/L (22-29); Chloride 96 mmol/L (98-107); Creatine Phosphokinase 29 U/L (26-192); Creatinine Clr Calc Pharmacy 68.0593; Globulin 2.6 g/dL (1.3-4.6); Glomerular Filtration Rate 72.7 mL/min (90-130); Glucose 100 mg/dL (65-115); Lactate Dehydrogenase 180 U/L (135-214); Lipase 39 U/L (13-60); Osmolality Calculated 287 mOsm/kg (285-295); Potassium 3.5 mmol/L (3.5-5.1); Sodium 137 mmol/L (136-145); Total Bilirubin 0.8 mg/dL (0.15-1.2); Total Protein 6.8 g/dL (6.6-8.7)
[2020-10-05 19:41] LABS: Add Urine Microscopic? YES; Bilirubin Urine Neg (Negative); Blood Urine Neg (Negative); Glucose Urine UA Norm (Normal); Ketones Urine Negative (Negative); Leukocyte Esterase Urine 1+ (Negative); Nitrate Urine Negative (Negative); Protein Urine Neg (Negative); Urine Appearance Clear (CLEAR); Urine Color Yellow (Yellow); Urobilinogen Urine Norm (Negative); pH Urine 5 (5-7)
[2020-10-05 19:42] LABS: Bacteria Urine 1+ /hpf; Hyaline Casts Urine 0-4 /lpf; Mucus Urine 2+ /hpf; RBC Urine 0-4 /hpf (0-2)
[2020-10-05 19:44] LABS: Calcium Oxalate Crystals Urine 15-25 /hpf
[2020-10-05 19:47] LABS: Thyroid Stimulating Hormone 3.04 uIU/mL (0.27-4.20)
[2020-10-05 21:00] VITALS: BP 117/63; PULSE 66; O2SAT 98
== END 2020-10-05 21:00 | disposition home or self-care (01) ==
PROVIDERS: Family Medicine; Emergency Provider Emergency Medicine; PCP Nurse Practitioner Family
DX: R53.1 Weakness (principal); R11.0 Nausea
CPT/HCPCS: 36415; 36416; 70450; 71045; 80053; 81001; 82550; 82962; 83615; 83690; 84443; 85025; 93005; 96365; 96366; 96375; 99284; J2405

== ENCOUNTER → 2020-10-11 14:39 | Outpatient (BNVA) | payer OTHER, SELFPAY | PROVIDERS: PCP Nurse Practitioner Family; Visit Provider Nurse Practitioner Family | DX: R51.9 Headache, unspecified (principal); Z91.89 Other specified personal risk factors, not elsewhere classified; R53.1 Weakness; R42 Dizziness and giddiness; R53.83 Other fatigue; I10 Essential (primary) hypertension | CPT/HCPCS: 83615; 85025; 86003; 86618; 86666; 86757 ==

== ENCOUNTER 2020-10-27 10:36 | Outpatient (CLI) | payer OTHER, SELFPAY ==
--- NOTE | 2020-10-27 11:00 | MM_ITS ---
WS: [id number] Bilateral screening digital mammogram, 10/27/2020 Clinical Data: Z12.31 - Encounter for screening mammogram for malignant neoplasm of breast Comparison: 10/26/2019, 12/07/2018, 09/18/2017, 09/17/2016, 09/12/2015, 09/09/2014, 09/07/2013, 07/16/2012, , 06/19/2010, 06/06/2010, 06/21/2009. Findings: The breast parenchymal pattern shows fat replacement. No spiculated masses or clustered calcification s are seen. There are no secondary signs of carcinoma. MM/[place] [id number] Impression: 1. Negative bilateral mammogram unchanged. 2. Recommend annual screening mammograms. BIRADS: 1-Negative FOLLOW UP: 1 Year Follow-up The CAD loom stop checker was used.
== END 2020-10-27 10:37 | disposition home or self-care (01) ==
LOC: RADSHAW 10:38
PROVIDERS: PCP Nurse Practitioner Family; Visit Provider Nurse Practitioner Family
DX: Z12.31 Encounter for screening mammogram for malignant neoplasm of breast (principal)
CPT/HCPCS: 77067

== ENCOUNTER 2020-10-30 05:56 | Outpatient (CLI) | payer OTHER, SELFPAY ==
[2020-10-30 12:13] LABS: Alanine Aminotransferase 60 U/L (0-33); Alkaline Phosphatase 73 IU/L (35-105); Anion Gap 11.4 (5-19); Aspartate Amino Transferase 44 U/L (0-32); Blood Urea Nitrogen 12 mg/dL (8-23); Carbon Dioxide 31 mmol/L (22-29); Chloride 103 mmol/L (98-107); Globulin 2.3 g/dL (1.3-4.6); Glomerular Filtration Rate 84.8 mL/min (90-130); Glucose 108 mg/dL (65-115); Lactate Dehydrogenase 228 U/L (135-214); Osmolality Calculated 292 mOsm/kg (285-295); Potassium 4.4 mmol/L (3.5-5.1); Sodium 141 mmol/L (136-145); Total Bilirubin 0.7 mg/dL (0.15-1.2); Total Protein 6.3 g/dL (6.6-8.7)
--- NOTE | 2020-11-03 08:50 | ONC FU_ITS ---
Dr. Vargas Patient Follow-Up Note Patient: Marisol Engel Unit #: [id number]: 1960 Dicatated By: Kemal Vargas M.D.Date of Visit:October 30, 2020 Onc Med Follow-up/Prog Note Chief Complaint: Hodgkin's lymphoma. History of Present Illness: This is a 60 year-old woman with recurrent Hodgkin's lymphoma. 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 She had stage I disease at that time and she was treated with radiation to the left neck and supraclavicular region to a total dose of 3600 cGy. She had biopsy proven recurrence in her right axilla in January 2011. She was then treated with ABVD chemotherapy, which she tolerated very poorly. As of July 2011 she was able to complete 4 cycles of treatment. There was no residual disease at that point by followup PET/CT. She was then given consolidation radiation to the right axilla/retropectoral region and the right supraclavicular fossa. Treatment was completed in September 2011 to a total dose of 3420 cGy to the supraclavicular region and 3600 cGy to the axilla/retropectoral region. She has since then been followed on observation with no further recurrence/progression of the Hodgkin's lymphoma. Her other medical illnesses have been limited to allergic rhinitis and irritable bowel syndrome. She is a nonsmoker. INTERIM HISTORY: She is seen for a followup visit. She has been feeling tired a lot, but much of that she attributes to stress, most of which is job-related. She is planning to retire. She still has normal activity. ECOG score is 0. She has good appetite. She has not had fever. She occasionally has sweating at night. She has some sinus drainage. She does not complain of cough. She says her breathing has been pretty good. She sometimes has pain in her upper chest area when she takes a deep breath. About a month ago she was seen in the emergency room with vomiting and diarrhea. With that episode she also got dizzy and sweaty and she developed a headache with some transient numbness on the right side. All of that resolved. Her bowel function has since then been okay. She does report having pain occasionally in the right upper quadrant area. Bladder function remains adequate. She does have some urgency with urination. She has joint pain, mainly in the elbows and knees and mainly with weather changes. She does have headaches and she sometimes has dizziness. She complains that her feet fall asleep very easily. She has been having some pain in the bottom of both feet, and she says she can feel a knot there. Medications: Calcium + D Tablet Oral daily, Flonase 1 (50 mcg/act) Suspension Nasal daily PRN, Loratadine 1 (10 mg) Tablet Oral daily, Meclizine HCl 1 (25 mg) Tablet Oral q 8 hours PRN, Mucinex 1 (600 mg) Tablet SR 12 HR Oral daily PRN, Potassium Chloride 1 (10 meq) Tablet, controlled release Oral daily, Singulair 1 (10 mg) Tablet Oral at bedtime, Valium 1 (5 mg) Tablet Oral PRN Allergies: CODEINE and DEMEROL. Vital Signs: Performed on October 30, 2020 11:18 Height - 64.00 in Weight - 143.4 lbs (LOW) BSA - 1.70 sq.m BMI - 24.61 Temperature - 98.2 F (LOW) Pulse - 78 /min Respiration - 18 /min BP - 136/90 mm(hg) O2 Sat - 97 % Pain - 0 Fatigue - 2 Physical Examination: Constitutional - She looks pretty good generally, Eyes - Sclerae nonicteric. Conjunctivae clear, ENMT - There are no lesions noted in the oral cavity, Hematologic/Lymphatic - There is no cervical, clavicular, or axillary adenopathy, Respiratory - Lungs sound clear, Cardiovascular - Heart rhythm is regular. There is a II/ systolic murmur. There is no gallop or rub noted, Abdomen - Soft. Liver and spleen are not enlarged. There is no abdominal mass or ascites noted and there is no inguinal adenopathy, Extremities - No edema. Dorsalis pedis pulses are palpable bilaterally. There is a nodule palpable in the metatarsal region of the the plantar aspect of the right foot, Neurologic - No focal neurologic deficits noted. Lab/Imaging: Her CBC on 10/11/2020 was normal with hemoglobin 13.8 g, white blood cell count 9800, and platelet count 233,000. Test performed on October 30, 2020 11:16 LDH (Total) 228 U/L Sodium 141 mmol/L Potassium 4.4 mmol/L Chloride 103 mmol/L CO2 31 mmol/L Anion Gap 11.4 BUN 12 mg/dL Creatinine 0.7 mg/dL Cr Clearance (Est) 85.5700 mL/min eGFR 84.8 mL/min Glucose 108 mg/dL Osmolality - Calculated 292 mOsm/kg Calcium 9.0 mg/dL Protein, Total 6.3 g/dL Albumin 4.0 g/dL Globulin 2.3 g/dL Bilirubin, Total 0.7 mg/dL ALT (SGPT) 60 U/L AST (SGOT) 44 U/L Alkaline Phosphatase 73 IU/L Problem List: 1. Classical Hodgkin's lymphoma, nodular sclerosing subtype, diagnosed by left supraclavicular lymph node biopsy in November 1999. She had stage I disease and she was treated with radiation to the left neck and supraclavicular region to a total dose of 3600 cGy. 2. She had biopsy-proven recurrence in the right axilla in 2010. She was then treated with 4 cycles of ABVD chemotherapy followed by consolidation radiation. She completed treatment in September 2011. 3. Chronic fatigue. 4. Allergic rhinitis. 5. Irritable bowel syndrome. Problems Addressed with this Encounter and Plan: 1. Patient with classical Hodgkin's lymphoma, nodular sclerosing subtype, diagnosed by left supraclavicular lymph node biopsy in November 1999. She had stage I disease and she was treated with radiation to the left neck and supraclavicular region to a total dose of 3600 cGy. She had biopsy-proven recurrence in the right axilla in 2010. She was then treated with 4 cycles of ABVD chemotherapy followed by consolidation radiation. She completed treatment in September 2011. During subsequent follow-up she has had some chronic fatigue and she also developed some lymphedema of the right arm. However, thus far there has been no further recurrence of her Hodgkin's lymphoma. She remains on expectant management. 2. She has developed a painful nodule on the plantar aspect of the right foot. I will arrange for referral to podiatry. Signed By: Kemal Vargas M.D. <<Signature on File>>
== END 2020-10-30 05:57 | disposition home or self-care (01) ==
PROVIDERS: PCP Nurse Practitioner Family; Visit Provider Internal Medicine Medical Oncology
DX: Z08 Encounter for follow-up examination after completed treatment for malignant neoplasm (principal); Z85.71 Personal history of Hodgkin lymphoma; M79.671 Pain in right foot; J30.9 Allergic rhinitis, unspecified; R53.82 Chronic fatigue, unspecified
CPT/HCPCS: 80053; 83615; 99214

== ENCOUNTER → 2020-11-06 07:58 | Outpatient (BNVA) | payer OTHER, SELFPAY | PROVIDERS: PCP Nurse Practitioner Family; Referring Provider Internal Medicine Medical Oncology; Visit Provider Podiatrist Foot & Ankle Surgery | DX: M20.12 Hallux valgus (acquired), left foot (principal); M20.11 Hallux valgus (acquired), right foot; M21.612 Bunion of left foot; M21.611 Bunion of right foot; M19.072 Primary osteoarthritis, left ankle and foot; M19.071 Primary osteoarthritis, right ankle and foot; M79.672 Pain in left foot; M79.671 Pain in right foot | CPT/HCPCS: 77077 ==

== ENCOUNTER 2020-12-12 14:43 | Outpatient (CLI) | payer OTHER, SELFPAY | END 2020-12-12 14:44 | disposition home or self-care (01) | LOC: SPT 14:44 | PROVIDERS: PCP Nurse Practitioner Family; Visit Provider Podiatrist Foot & Ankle Surgery | DX: Z46.89 Encounter for fitting and adjustment of other specified devices (principal); G57.61 Lesion of plantar nerve, right lower limb | CPT/HCPCS: 97760; L4397 ==

== ENCOUNTER → 2021-11-12 09:55 | Outpatient (BNVA) | payer OTHER, SELFPAY | PROVIDERS: PCP Nurse Practitioner Family; Visit Provider Nurse Practitioner Family | DX: I10 Essential (primary) hypertension (principal) | CPT/HCPCS: 80053; 80061; 84443; 85025 ==

== ENCOUNTER 2021-11-28 13:22 | Emergency (ER) | payer OTHER, SELFPAY ==
--- NOTE | 2021-11-28 13:24 | XR_ITS ---
WS: [id number] Exam: XR chest 1V portable [id number] Date/Time of Exam: 11/28/2021 2:06 PM Reason For Exam: chest pain Comparison 10/05/2020. Findings: The lungs are clear and fully expanded. Costophrenic angles are sharp. No infiltrates. Bronchovascula r relief appears normal. Cardiac silhouette is unremarkable. Bony elements are intact. XR/XR chest 1V portable [id number] IMPRESSION: Unremarkable chest radiograph.
[2021-11-28 13:45] VITALS: BP 106/71; PULSE 79; RESP 15; TEMP 36.5; O2SAT 99; BMI 23.3
[2021-11-28 15:13] LABS: Basophils % 0.2 %; Eosinophils # 0.1 10^3/uL (0.0-0.8); Eosinophils % 0.4 %; Hematocrit 47.2 % (37.0-47.0); Hemoglobin 15.8 g/dL (11.5-15.3); Lymphocytes # 2.3 10^3/uL (0.8-4.8); Lymphocytes % 12.6 %; Mean Corpuscular HGB Conc 33.5 g/dL (30.0-36.0); Mean Corpuscular Hemoglobin 31.7 pg (28.0-34.0); Mean Corpuscular Volume 94.6 fl (81-99); Mean Platelet Volume 9.2 fL (7.4-10.4); Monocytes # 1.6 10^3/uL (0.2-0.9); Neutrophils # 13.93 10^3/uL (1.8-7.7); Neutrophils % 76.5 %; Nucleated Red Blood Cells % 0 %; Platelet Count 302 10^3/cmm (130-400); Red Blood Count 4.99 10^6/uL (4.1-5.3); Red Cell Distribution Width 12.9 % (12.1-15.1); White Blood Count 18.2 10^3/uL (4.0-10.0)
--- NOTE | 2021-11-28 15:24 | ECG_ITS ---
[facility] Test Date: 2021-11-28 Pat Name: Marisol Engel Department: Room: Gender: Female Plan Rep: : 1960 Requested By: Ryan Centeno Order Number: [id number] Shannan MD: Yosef Vazquez M.D. Measurements Intervals [place] Rate: 61 P: 31 MO: 149 QRS: 9 QRSD: 83 T: 67 QT: 381 QTc: 386 Interpretive Statements SINUS RHYTHM POSSIBLE ANTERIOR MYOCARDIAL INFARCTION , OF INDETERMINATE AGE [30 ms Q WAVE IN V3/V4, OR R < 0.2 mV IN V4] Compared to ECG 11/28/2021 13:56:29 No significant changes Electronically Signed On 11-28-2021 20:20:37 CDT by Yosef Vazquez M.D. [id number]
--- NOTE | 2021-11-28 15:24 | ED_ITS ---
HPI - General Adult General: Chief complaint: Chest Pain Stated complaint: Chest Pain, n/v, weakness Time Seen by Provider: 11/28/21 15:06 History of Present Illness: Patient is a 61-year-old female with a history of hypertension, hyperlipidemia who presents emergency room with complaints of diarrhea generalized weakness and chest pain. Patient tells me that she has been doing well up until 12:30 this morning when she suddenly fell very lightheaded which point time, patient reports having 1 episode of diarrhea and then developed chest pressure. Patient reports a sensation of an elephant sitting on her chest lasting for few minutes at a time and nearly passing out. Patient also reports nausea and vomiting and diaphoresis. Patient denies any recent diarrhea other than this episode. Patient reports mild left lower quadrant Devin pain which started around the same time. Patient has any fever or chills, cough, runny nose or sore throat patient denies any decreasing intake nausea vomiting the last few days. No other focal complaints today including melena/hematochezia. No complaints. Patient denies having any previous prior cardiac history. She denies any smoking, recent immobilization or travel. Patient denies any exertional fatigue or chest pain. Patient is currently chest pain-free but reports ongoing lightheadedness. She denies any recent antibiotic use or recent travel. Onset: 1230pm Duration:ongoing Location:home Severity:moderate Associated symptoms: Reports chest pain, malaise, nausea and vomiting; Deny dyspnea, rash or palpitations Review of Systems Const: Reports: fatigue, malaise and other (+light-headedness); Denies: fever(s) or chills Eyes: Denies: change in vision ENMT: Denies: mouth pain Card: Reports: chest pain; Denies: palpitations Resp: Denies: dyspnea or non-productive cough GI: Reports: abdominal pain (+LLQ abd pain), nausea, vomiting and diarrhea : Denies: dysuria Musc: Denies: extremity pain Skin/Breast: Denies: rash or new lesions Neuro: Denies: weakness in extremities Psych: Reports: other (Normal mood) Cornell/Lymph: Denies: easy bruising PFSH ED PFSH: Medical History (Updated 11/28/21 @ 19:41 by Ryan Centeno MD) Hyperlipemia Hypertension Surgical History H/O: hysterectomy History of appendectomy History of cholecystectomy Family History Other CAD (coronary artery disease) Cancer Social History Smoking and tobacco status: never smoked Alcohol intake: never Adopted: No Lives independently: Yes Household members: none Housing: House Marital status: Number of children: 2 Highest education level completed: High School Graduate service: No Current occupational status: employed Pets and animals: No Current gender identity: Female Physical Exam Const: COMMON NORMALS: alert HENMT: COMMON NORMALS: atraumatic HEAD & SCALP: atraumatic MOUTH: moist mucous membranes not abnormal Eye: COMMON NORMALS: EOMs intact bilaterally and conjunctivae normal CONJUNCTIVA: Yes conjunctivae normal Neck/C-Spine: COMMON NORMALS: full ROM and supple Resp: COMMON NORMALS: normal respiratory effort and clear to auscultation bilaterally AUSCULTATION: clear to auscultation bilaterally Cardio: COMMON NORMALS: regular rate RATE: regular rate OTHER: 2+ radial pulses b/l GI: COMMON NORMALS: Soft to palpation PALPATION: Yes Soft to palpation OTHER: +mild LLQ abd tenderness to palpation. NO guarding rebound, guarding, rigidity. No CVA tenderness to percussion. Neg Bonds/Neg McBurney's point tenderness, no suprabupic tenderness to palpation. Extremity: COMMON NORMALS: full ROM Neuro: SENSORIUM/ORIENTATION: Yes alert MOTOR EXAM: No Abnormal motor strength present and Other motor observations present (no focal motor deficits) Psych: COMMON NORMALS: speech normal SPEECH: Yes normal speech MOOD & AFFECT: Yes euthymic mood Course Vital Signs: Vital signs: Vital Signs Temperature 97.7 F 11/28/21 13:45 Pulse Rate 79 11/28/21 20:07 Respiratory Rate 17 11/28/21 20:52 Blood Pressure 118/102 11/28/21 20:52 Pulse Oximetry 99 11/28/21 20:07 [facility] - General Adult Medical Decision Making 61-year-old female with a history of hypertension, hyperlipidemia presenting to the emergency room with multiple complaints including diarrhea, lightheadedness, and chest pressure. On physical exam, patient has mild tenderness palpation in the LLQ. No guarding no rebound tenderness. Patient no longer complains of chest pain. Initial EKG did not show any signs of ST-T wave changes. Troponin of 6 today. White count 18.2. CT ab pelvis showed colitis. Troponin x2 within normal limit. EKG appears similar compared to prior evaluation. Given the fact the patient does not have any active chest pain, with normal to normal troponin, I do not suspect this is ACS currently. Doubt ACS/PE or other emergent causes of chest pain. No suspicion for aortic dissection given no widened mediastinum, 2+ upper extremity pulses, or tearing pain. No suspicion for PE given no pleuritic chest pain, recent immobilization or surgery hemoptysis, or other VTE risk factors. EKG is non-ischemic. XR normal. Patient received IVF, Pepcid, aspirin the ED and reports mild improvement in symptoms of abdominal pain. Rx tylenol PRN abd pain, maalox/pepcid PRN dyspepsia, and zofran PRN nausea/vomiting, augmentin for colitis Disposition: Discharge. Patient counseled regarding diagnostic impression, treatment plan. Patient given ED strict return precautions to return for con tinuation, worsening, or development of new symptoms. Instructed to f/u w/ PCP regarding symptoms today. Patient verbalized understanding. Lab Data : 11/28/21 15:02 11/28/21 15:02 Radiology Impressions Chest X-Ray 11/28/21 13:24 IMPRESSION: Unremarkable chest radiograph. Abdomen/Pelvis CT 11/28/21 16:53 IMPRESSION: 1. Left colon wall thickening suggestive of a colitis, nondistention may also be a consideration. 2. Diverticulosis without diverticulitis. 3. Bilateral right greater than left fat containing inguinal hernias without bowel or inflammation. 4. Bibasilar atelectasis versus minimal infiltrate. 5. Coronary artery atherosclerotic calcifications. 6. Left hepatic lobe cyst. 7. Cholecystectomy. Laboratory Results WBC 18.2 10^3/uL (4.0-10.0) H 11/28/21 15:02 RBC 4.99 10^6/uL (4.1-5.3) 11/28/21 15:02 Hgb 15.8 g/dL (11.5-15.3) H 11/28/21 15:02 Hct 47.2 % (37.0-47.0) H 11/28/21 15:02 MCV 94.6 fl (81-99) 11/28/21 15:02 MCH 31.7 pg (28.0-34.0) 11/28/21 15:02 MCHC 33.5 g/dL (30.0-36.0) 11/28/21 15:02 RDW 12.9 % (12.1-15.1) 11/28/21 15:02 Plt Count 302 10^3/cmm (130-400) 11/28/21 15:02 MPV 9.2 fL (7.4-10.4) 11/28/21 15:02 Neut % (Auto) 76.5 % 11/28/21 15:02 Lymph % (Auto) 12.6 % 11/28/21 15:02 Jay % (Auto) 9.0 % 11/28/21 15:02 Eos % (Auto) 0.4 % 11/28/21 15:02 Baso % (Auto) 0.2 % 11/28/21 15:02 Neut # (Auto) 13.93 10^3/uL (1.8-7.7) H 11/28/21 15:02 Lymph # (Auto) 2.3 10^3/uL (0.8-4.8) 11/28/21 15:02 Jay # (Auto) 1.6 10^3/uL (0.2-0.9) H 11/28/21 15:02 Eos # (Auto) 0.1 10^3/uL (0.0-0.8) 11/28/21 15:02 Baso # (Auto) 0.0 10^3/uL (0.0-0.1) 11/28/21 15:02 Nucleated RBC % (auto) 0 % 11/28/21 15:02 Nucleated RBCs # 0.0 /100WBC 11/28/21 15:02 Sodium 136 mmol/L (136-145) 11/28/21 15:02 Potassium 4.3 mmol/L (3.5-5.1) 11/28/21 15:02 Chloride 98 mmol/L (98-107) 11/28/21 15:02 Carbon Dioxide 29 mmol/L (22-29) 11/28/21 15:02 Anion Gap 13.3 (5-19) 11/28/21 15:02 BUN 25 mg/dL (8-23) H 11/28/21 15:02 Creatinine 1.1 mg/dL (0.5-0.9) H 11/28/21 15:02 GFR Calculation 50.2 mL/min (90-130) L 11/28/21 15:02 Glucose 124 mg/dL (65-115) H 11/28/21 15:02 Calculated Osmolality 288 mOsm/kg (285-295) 11/28/21 15:02 Calcium 9.4 mg/dL (8.5-10.5) 11/28/21 15:02 Troponin T Baseline 6 ng/L (0-10) 11/28/21 15:02 Troponin T 120 Minute 6.00 ng/L (0-10) 11/28/21 19:05 Delta Troponin T 0 ABS# (0-10) 11/28/21 19:05 Hepatitis A IgM Ab Non-reactive (Nonreactive) 11/28/21 20:00 Hep Bs Antigen Non-reactive (Nonreactive) 11/28/21 20:00 Hep B Core IgM Ab Non-reactive (Nonreactive) 11/28/21 20:00 Hepatitis C Antibody Non-reactive (Nonreactive) 11/28/21 20:00 Imaging Data Other Imaging: Radiologist's impression: [place] [address] CT Scan Report Signed Patient: Marisol Engel Unit #: [id number] : 1960 Age/Sex: 61 / F ADM Date: 11/28/21 Loc: ER Room/Bed: Attending Dr: Ordering Provider/Ordering MD: Ryan Centeno MD Date of Service: 11/28/21 Procedure(s): CT abdomen pelvis w con* [id number] Accession Number(s): [id number] Report Number: [id number] PROCEDURE INFORMATION: Exam: CT Abdomen And Pelvis With Contrast Exam date and time: 11/28/2021 5:37 PM Age: 61 years old Clinical indication: Abdominal pain; Additional info: Llq abd pain TECHNIQUE: Imaging protocol: Computed tomography of the abdomen and pelvis with contrast. Radiation optimization: All CT scans at this facility use at least one of these dose optimization techniques: automated exposure control; mA and/or kV adjustment per patient size (includes targeted exams where dose is matched to clinical indication); or iterative reconstruction. Contrast material: OMNIPAQUE 3--0; Contrast volume: 90 ml; Contrast route: INTRAVENOUS (IV);? COMPARISON: CT lumbar spine wo con* [id number] 06/13/2020 5:27 PM RADIATION DOSE METRICS: Total DLP (mGy-cm): 1648.09 FINDINGS: Lungs: Bibasilar atelectasis versus minimal infiltrate. Heart: Coronary artery atherosclerotic calcifications. Liver: Left hepatic lobe cyst. Gallbladder and bile ducts: Cholecystectomy. Pancreas: Normal. No ductal dilation. Spleen: Normal. No splenomegaly. Adrenal glands: Normal. No mass. Kidneys and ureters: Normal. No hydronephrosis. Stomach and bowel: Left colon wall thickening suggestive of a colitis, nondistention may also be a consideration. Diverticulosis without diverticulitis. Appendix: No evidence of appendicitis. Intraperitoneal space: Unremarkable. No free air. No significant fluid collection. Vasculature: Unremarkable. No abdominal aortic aneurysm. Lymph nodes: Unremarkable. No enlarged lymph nodes. Urinary bladder: Unremarkable as visualized. Reproductive: Unremarkable as visualized. Bones/joints: Unremarkable. No acute fracture. Soft tissues: Bilateral right greater than left fat containing inguinal hernias without bowel or inflammation. CT/CT abdomen pelvis w con* [id number] IMPRESSION: 1. Left colon wall thickening suggestive of a colitis, nondistention may also be a consideration. 2. Diverticulosis without diverticulitis. 3. Bilateral right greater than left fat containing inguinal hernias without bowel or inflammation. 4. Bibasilar atelectasis versus minimal infiltrate. 5. Coronary artery atherosclerotic calcifications. 6. Left hepatic lobe cyst. 7. Cholecystectomy. ? Dictated By: Fab Santana MD Signed By: Fab Santana MD Signed Date/Time: 11/28/211814 DD/ 173 Launch?Image [employer] [address] [place] [address]. [place] [address] XRay Report Signed Patient: Marisol Engel Unit #: [id number] : 1960 Age/Sex: 61 / F ADM Date: 11/28/21 Loc: ER Room/Bed: Attending Dr: Ordering Provider/Ordering MD: Ryan Centeno MD Date of Service: 11/28/21 Procedure(s): XR chest 1V portable [id number] Accession Number(s): [id number] Report Number: [id number] WS: [id number] Exam: XR chest 1V portable [id number] Date/Time of Exam: 11/28/2021 2:06 PM Reason For Exam: chest pain Comparison 10/05/2020. Findings: The lungs are clear and fully expanded. Costophrenic angles are sharp. No i nfiltrates. Bronchovascular relief appears normal. Cardiac silhouette is unremarkable. Bony elements are intact. ? XR/XR chest 1V portable [id number] IMPRESSION: Unremarkable chest radiograph. ? ? Dictated By: George Chappell DO Signed By: George Chappell DO Signed Date/Time: 11/28/211408 DD/ 07 Discharge Plan Discharge Patient Disposition: Home Clinical Impression: Diarrhea, Colitis, Chest pain Condition: Stable Prescriptions: New Pepcid 20 mg tablet 20 mg PO BID PRN (Reason: abdominal pain) 10 Days Qty: 20 0RF Maalox Advanced 1,000-60 mg tablet,chewable 1 tab PO TID PRN (Reason: abdominal pain) 7 Days Qty: 21 0RF amoxicillin-pot clavulanate 875-125 mg tablet 1 tab PO BID 7 Days Qty: 14 0RF No Action (DME) Night Splint on right See Rx Instructions .Route .MEDSUPPLY Qty: 1 0RF Rx Instructions: As directed (DME) Custom Arch Supports See Rx Instructions .Route .MEDSUPPLY Qty: 1 0RF Rx Instructions: As directed prednisone 10 mg tablets,dose pack See Rx Instructions PO PER PKG DIR Qty: 21 0RF Rx Instructions: PO PER PKG DIR may use loose pills epinephrine [EpiPen 2-Cortez] 0.3 mg/0.3 mL auto-injector 0.3 mg IM Q4H PRN (Reason: anaphylaxis) Qty: 2 0RF montelukast [Singulair] 10 mg tablet 10 mg PO DAILY@2100 30 Days Qty: 30 11RF potassium chloride 10 mEq capsule, extended release 10 meq PO DAILY@0600 30 Days Qty: 30 11RF pravastatin 20 mg tablet 20 mg PO DAILY Qty: 30 11RF Advil 200 mg Tablet 200 mg PO Q6H PRN (Reason: Pain) 0RF vitamin B complex Tablet 1 tab PO DAILY 0RF albuterol sulfate 90 mcg/actuation Hfa Aerosol Inhaler 2 puff INHALATION QID PRN (Reason: Shortness Of Breath) 0RF Fadi Mag Zinc Plus D3 333 mg-133 unit -133 mg-5 mg Tablet 1 tab PO DAILY PRN (Reason: unknown) 0RF Vitamin D3 1 cap PO Q7D 0RF lisinopril 5 mg tablet 5 mg PO QAM 0RF Discharge Orders: Discharge ED (Routine); Ordered 11/28/21 Ordered By: Ryan Centeno Referrals: Sandrine Sandoval FNP-C [Primary Care Provider] - Discharge Diet: Advance as tolerated Discharge Activity: Increase activity as tolerated Patient Instructions: Colitis (ED) Activity Restrictions/Additional Instructions: Please come back if you have any worsening abdominal pain, fever or chills, nausea or vomiting, diarrhea, blood in the stool, inability hold down liquid or solids, or any new concerning complaints. Please take your antibiotics as instructed. Watch out for signs of skin changes/redness, mouth redeness or swelling, nausea/vomiting, diarrhea, blood in the urine or any new or concerbing complaints. Coding Level of Care Code ED Steam Room Attendant for Shoaib Fwnirali Exam Comprehensive
[2021-11-28 15:34] LABS: Troponin(5th) Baseline 6 ng/L (0-10)
[2021-11-28 15:37] LABS: Anion Gap 13.3 (5-19); Blood Urea Nitrogen 25 mg/dL (8-23); Calcium 9.4 mg/dL (8.5-10.5); Carbon Dioxide 29 mmol/L (22-29); Chloride 98 mmol/L (98-107); Glomerular Filtration Rate 50.2 mL/min (90-130); Glucose 124 mg/dL (65-115); Osmolality Calculated 288 mOsm/kg (285-295); Potassium 4.3 mmol/L (3.5-5.1); Sodium 136 mmol/L (136-145)
[2021-11-28] MEDS: aspirin 325 mg Tablet PO (15:56)
[2021-11-28] MEDS: sodium chloride 0.9% 1,000 ML 999 ML IV (15:56)
[2021-11-28 16:10] VITALS: BP 134/78; PULSE 68; RESP 15; O2SAT 98
--- NOTE | 2021-11-28 16:53 | CTR_ITS ---
PROCEDURE INFORMATION: Exam: CT Abdomen And Pelvis With Contrast Exam date and time: 11/28/2021 5:37 PM Age: 61 years old Clinical indication: Abdominal pain; Additional info: Llq abd pain TECHNIQUE: Imaging protocol: Computed tomography of the abdomen and pelvis with contrast. Radiation optimization: All CT scans at this facility use at least one of these dose optimization techniques: automated exposure control; mA and/or kV adjustment per patient size (includes targeted exams where dose is matched to clinical indication); or iterative reconstruction. Contrast material: OMNIPAQUE 3--0; Contrast volume: 90 ml; Contrast route: INTRAVENOUS (IV); COMPARISON: CT lumbar spine wo con* [id number] 06/13/2020 5:27 PM RADIATION DOSE METRICS: Total DLP (mGy-cm): 1648.09 FINDINGS: Lungs: Bibasilar atelectasis versus minimal infiltrate. Heart: Coronary artery atherosclerotic calcifications. Liver: Left hepatic lobe cyst. Gallbladder and bile ducts: Cholecystectomy. Pancreas: Normal. No ductal dilation. Spleen: Normal. No splenomegaly. Adrenal glands: Normal. No mass. Kidneys and ureters: Normal. No hydronephrosis. Stomach and bowel: Left colon wall thickening suggestive of a colitis, nondistention may also be a consideration. Diverticulosis without diverticulitis. Appendix: No evidence of appendicitis. Intraperitoneal space: Unremarkable. No free air. No significant fluid collection. Vasculature: Unremarkable. No abdominal aortic aneurysm. Lymph nodes: Unremarkable. No enlarged lymph nodes. Urinary bladder: Unremarkable as visualized. Reproductive: Unremarkable as visualized. Bones/joints: Unremarkable. No acute fracture. Soft tissues: Bilateral right greater than left fat containing inguinal hernias without bowel or inflammation. CT/CT abdomen pelvis w con* [id number] IMPRESSION: 1. Left colon wall thickening suggestive of a colitis, nondistention may also be a consideration. 2. Diverticulosis without diverticulitis. 3. Bilateral right greater than left fat containing inguinal hernias without bowel or inflammation. 4. Bibasilar atelectasis versus minimal infiltrate. 5. Coronary artery atherosclerotic calcifications. 6. Left hepatic lobe cyst. 7. Cholecystectomy.
[2021-11-28] MEDS: iohexol 300 mg/mL 100 mL Btl IV (17:40)
[2021-11-28 18:58] VITALS: PULSE 82; RESP 15; O2SAT 98
--- NOTE | 2021-11-28 19:24 | ECG_ITS ---
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 Measurements Intervals [place] Rate: 68 P: 10 TX: 156 QRS: 55 QRSD: 77 T: -5 QT: 371 QTc: 397 Interpretive Statements SINUS RHYTHM POSSIBLE ANTERIOR MYOCARDIAL INFARCTION , PROBABLY OLD [30 ms Q WAVE IN V3/V4, OR R < 0.2 mV IN V4] Compared to ECG 10/05/2020 18:53:29 No significant changes Electronically Signed On 11-28-2021 20:20:24 CDT by Yosef Vazquez M.D. [id number]
[2021-11-28 19:53] LABS: Troponin 5 2HR Delta 0 ABS# (0-10)
[2021-11-28] MEDS: amoxicillin-clav 875-125 mg Tablet 1 TAB PO (19:57)
[2021-11-28 20:07] VITALS: BP 153/81; PULSE 79; RESP 18; O2SAT 99
[2021-11-28 20:52] VITALS: BP 118/102; RESP 17
[2021-11-28 21:36] LABS: Hepatitis A Antibody IgM Non-Reactive (Nonreactive); Hepatitis B Core IgM Non-Reactive (Nonreactive); Hepatitis B Surface Antigen Non-Reactive (Nonreactive); Hepatitis C Virus Antibody Non-Reactive (Nonreactive)
== END 2021-11-28 20:55 | disposition home or self-care (01) ==
PROVIDERS: Emergency Provider Emergency Medicine; PCP Nurse Practitioner Family
DX: K52.9 Noninfective gastroenteritis and colitis, unspecified (principal); R07.9 Chest pain, unspecified; Z90.49 Acquired absence of other specified parts of digestive tract; Z90.89 Acquired absence of other organs
CPT/HCPCS: 71045; 74177; 80048; 80074; 84484; 85025; 93005; 99285; J7030; Q9967

== ENCOUNTER → 2023-02-26 14:10 | Outpatient (BNVA) | payer SELFPAY | PROVIDERS: PCP Nurse Practitioner Family; Visit Provider Nurse Practitioner Family | DX: I10 Essential (primary) hypertension; E78.5 Hyperlipidemia, unspecified | CPT/HCPCS: 80053; 83036; 84443; 85025 ==

== ENCOUNTER → 2023-03-25 09:24 | Outpatient (BNVA) | payer SELFPAY | PROVIDERS: PCP Nurse Practitioner Family; Visit Provider Nurse Practitioner Family | DX: I10 Essential (primary) hypertension (principal) | CPT/HCPCS: 80053 ==

== ENCOUNTER → 2023-12-22 11:19 | Outpatient (BNVA) | payer MEDICAID, MEDICARE, SELFPAY | PROVIDERS: PCP Nurse Practitioner Family; Visit Provider Nurse Practitioner Family | DX: I10 Essential (primary) hypertension (principal) | CPT/HCPCS: 80053; 80061; 83036; 84443; 85025 ==

== ENCOUNTER → 2024-01-22 08:27 | Outpatient (BNVA) | payer MEDICARE, MEDICAID, SELFPAY | PROVIDERS: PCP Nurse Practitioner Family; Visit Provider Podiatrist Foot & Ankle Surgery | DX: M79.671 Pain in right foot (principal); B07.0 Plantar wart | CPT/HCPCS: 17110; 73630; 99203 ==

== ENCOUNTER → 2024-02-05 08:17 | Outpatient (BNVA) | payer MEDICARE, MEDICAID, SELFPAY | PROVIDERS: PCP Nurse Practitioner Family; Visit Provider Podiatrist Foot & Ankle Surgery | DX: B07.0 Plantar wart (principal) | CPT/HCPCS: 17110 ==

== ENCOUNTER → 2024-02-19 09:00 | Outpatient (BNVA) | payer MEDICARE, MEDICAID, SELFPAY | PROVIDERS: PCP Nurse Practitioner Family; Visit Provider Podiatrist Foot & Ankle Surgery | DX: B07.0 Plantar wart (principal) | CPT/HCPCS: 17110 ==

== ENCOUNTER → 2024-03-04 08:22 | Outpatient (BNVA) | payer MEDICARE, MEDICAID, SELFPAY | PROVIDERS: PCP Nurse Practitioner Family; Visit Provider Podiatrist Foot & Ankle Surgery | DX: L98.9 Disorder of the skin and subcutaneous tissue, unspecified (principal); B07.0 Plantar wart | CPT/HCPCS: 99213 ==

== ENCOUNTER → 2024-04-22 08:00 | Outpatient (BNVA) | payer MEDICARE, MEDICAID, SELFPAY | PROVIDERS: PCP Nurse Practitioner Family; Visit Provider Nurse Practitioner Family | DX: D48.5 Neoplasm of uncertain behavior of skin (principal); D22.39 Melanocytic nevi of other parts of face; L82.1 Other seborrheic keratosis; D22.5 Melanocytic nevi of trunk | CPT/HCPCS: 99203 ==

== ENCOUNTER → 2024-04-26 14:04 | Outpatient (BNVA) | payer MEDICARE, MEDICAID, SELFPAY | PROVIDERS: PCP Nurse Practitioner Family; Visit Provider Podiatrist Foot & Ankle Surgery | DX: B07.0 Plantar wart (principal); L98.9 Disorder of the skin and subcutaneous tissue, unspecified | CPT/HCPCS: 99213 ==

== ENCOUNTER → 2024-05-31 09:32 | Outpatient (BNVA) | payer MEDICARE, MEDICAID, SELFPAY | PROVIDERS: PCP Nurse Practitioner; Visit Provider Nurse Practitioner | DX: E55.9 Vitamin D deficiency, unspecified (principal); I10 Essential (primary) hypertension | CPT/HCPCS: 80053; 80061; 82306; 82607; 84443; 85025 ==

== ENCOUNTER 2024-06-10 10:40 | Outpatient (CLI) | payer MEDICARE, MEDICAID, SELFPAY ==
--- NOTE | 2024-06-10 10:40 | MM_ITS ---
WS: [id number] Bilateral screening 3D tomosynthesis digital mammogram, 06/10/2024 10:46 AM Clinical Data: Z12.31 - Encounter for screening mammogram for malignant ... Comparison: 10/27/2020, 10/26/2019, 09/21/2018, 09/18/2017, 09/17/2016, 09/12/2015, 09/09/2014, 09/07/2013, 07/16, 06/13/2011, 06/19/2010, 06/06/2010, 06/21/2009. Findings: No spiculated masses or clustered calcifications are seen. There are no secondary signs of carcinoma . MM/MM scr BI tomosynthesis [id number] Impression: Negative bilateral mammogram unchanged. Recommend annual screening mammograms. BIRADS: 1 - Negative. FOLLOW UP: 1 Year Follow-up DENSITY: There are scattered areas of fibroglandular density. The CAD checker loader was used
== END 2024-06-10 10:41 | disposition home or self-care (01) ==
PROVIDERS: PCP Nurse Practitioner; Visit Provider Nurse Practitioner
DX: Z12.31 Encounter for screening mammogram for malignant neoplasm of breast (principal)
CPT/HCPCS: 77063; 77067

== ENCOUNTER → 2024-08-05 11:07 | Outpatient (BNVA) | payer MEDICARE, MEDICAID, SELFPAY | PROVIDERS: PCP Nurse Practitioner; Visit Provider Clinical Nurse Specialist Adult Health | DX: J06.9 Acute upper respiratory infection, unspecified (principal) | CPT/HCPCS: 87400; 87426 ==

== ENCOUNTER → 2024-08-16 09:05 | Outpatient (BNVA) | payer MEDICARE, MEDICAID, SELFPAY | PROVIDERS: PCP Nurse Practitioner; Visit Provider Nurse Practitioner | DX: I10 Essential (primary) hypertension (principal); F41.8 Other specified anxiety disorders; E78.5 Hyperlipidemia, unspecified; J30.89 Other allergic rhinitis; E55.9 Vitamin D deficiency, unspecified; J40 Bronchitis, not specified as acute or chronic; J44.9 Chronic obstructive pulmonary disease, unspecified; J32.9 Chronic sinusitis, unspecified; E78.2 Mixed hyperlipidemia | CPT/HCPCS: 80053; 82306; 82607; 84443; 85025 ==

== ENCOUNTER 2024-11-11 14:37 | Outpatient (CLI) | payer MEDICARE, MEDICAID, SELFPAY ==
--- NOTE | 2024-11-11 15:00 | XR_ITS ---
WS: [id number] DEXA (DUAL ENERGY X-RAY ABSORPTIOMETRY) Bone mineral density was performed using a FixMeStick machine. HISTORY: Z78.0 - Asymptomatic menopausal state COMPARISON: None available. Lumbar spine BMD (L1-L4): 0.971 g/cm2 T score: -1.7 Z score: -0.1 Total hip BMD: Left: 0.851 g/cm2. T score: -1.2 Z score: 0.0 Right: 0.883 g/cm2. T score: -1.0 Z score: 0.3 10 year probability of a major osteoporotic fracture is 10%. XR/XR DEXA axial skeleton* 62696 IMPRESSION: OSTEOPENIA based upon the WHO classification for females.
== END 2024-11-11 14:38 | disposition home or self-care (01) ==
PROVIDERS: PCP Nurse Practitioner; Visit Provider Nurse Practitioner
DX: Z78.0 Asymptomatic menopausal state (principal); M85.80 Other specified disorders of bone density and structure, unspecified site
CPT/HCPCS: 77080

== ENCOUNTER → 2024-11-23 10:11 | Outpatient (BNVA) | payer MEDICARE, MEDICAID, SELFPAY | PROVIDERS: PCP Nurse Practitioner; Referring Provider Nurse Practitioner; Visit Provider Surgery | DX: Z12.11 Encounter for screening for malignant neoplasm of colon (principal) | CPT/HCPCS: 99024; 99204 ==

== ENCOUNTER 2024-12-30 06:48 | Day surgery (SDC) | payer MEDICARE, MEDICAID, SELFPAY ==
--- NOTE | 2024-12-30 06:59 | P.HP_ITS ---
Same Day Surgery H&P Indication for Procedure/HPI DATE OF PROCEDURE: December 30, 2024 CHIEF COMPLAINT/INDICATIONFOR SURGICAL PROCEDURE: need for screening colonoscopy PREOP DIAGNOSIS: need for screening colonoscopy PLANNED PROCEDURE: Operation Date: 12/30/24 07:40 Proposed Procedures p Colonoscopy 17742 G0121, Z12.11(Not Applicable) - Octavio Wheeler MD Medications/Allergies* Home Medications ?Medication ?Instructions ?Recorded ?Confirmed ?Type ibuprofen 200 mg tablet (Advil) 200 mg PO Q6H PRN Pain 11/28/21 12/29/24 History vitamin B complex 1 tab PO DAILY 11/28/21 07/03/17 History triamcinolone acetonide 0.1 % 1 applic topical BID PRN Rash 12/29/24 12/29/24 Hi story topical cream Allergies/Adverse Reactions Allergy/AdvReac Type Severity Reaction Status Date / Time codeine Allergy Unknown Unknown Verified 12/29/24 08:30 Pertinent History/Comorbid Conditions* Medical History (Updated 11/23/24 @ 13:40 by HAYLEY Mireles-Dorothy) Situational anxiety Vitamin D deficiency Non-Hodgkin lymphoma 2000 Environmental and seasonal allergies Hypertension Hyperlipemia Surgical History (Updated 11/08/24 @ 12:06 by DEBBY Mireles) History of bilateral cataract extraction 2020 History of lymph node excision left neck 2000 and right axilla 2009 History of appendectomy History of cholecystectomy H/O: hysterectomy with BSO Family History (Updated 05/31/24 @ 09:29 by DEBBY Mireles) Diabetes Grandfather CAD (coronary artery disease) Father Leukemia Family/Other Social History Smoking and tobacco/nicotine status: never used tobacco/nicotine Alcohol intake: never Substance/Drug Use: never Adopted: No Lives independently: Yes Household members: none Housing: House Marital status: Number of children: 2 Highest education level completed: High School Graduate service: No Current occupational status: employed Pets and animals: No Current gender identity: Female Pertinent Exam Findings alert, oriented x 3, clear to auscultation bilaterally and regular rate & rhythm Recommendations Surgery/Procedure today Coding Level of Care Code Acute Code for Chg Fwd
[2024-12-30 07:04] VITALS: BP 143/93; PULSE 89; RESP 16; TEMP 36.1; O2SAT 98; BMI 23.9
--- NOTE | 2024-12-30 07:08 | ANES.PREANE2 ---
Pre-Anesthetic Assessment Height/Weight: Height 1.6 m Weight 61.235 kg Temp Pulse Resp BP Pulse Ox O2 Del Method 97.0 F L 89 16 143/93 98 Room Air 12/30/24 07:04 12/30/24 07:04 12/30/24 07:04 12/30/24 07:04 12/30/24 07:04 12/30/24 07:04 Preop Diagnosis: need for screening colonoscopy Operation Date: 12/30/24 07:40 Proposed Procedures p Colonoscopy 80124 G0121, Z12.11(Not Applicable) - Octavio Wheeler MD Was Beta Bud taken within 24 hours: N/A Was Clonidine taken within 24 hours: N/A Last intake: Intake Last Liquid Date 12/29/24 Last Liquid Time 21:30 Last Solid Date 12/28/24 Last Solid Time 20:00 Social No alcohol and No tobacco Exam alert, oriented x 3, clear to auscultation bilaterally and regular rate & rhythm Airway Cervical ROM: within normal limits Mallampati: Class II Dentition: false History/ROS No significant complaints Pulmonary None reported Albuterol PRN CV/HEM Hypertension None reported Hepatic None reported GI None reported Metabolic None reported Musc/skel None reported Neuropsych None reported Anesthetic Plan ASA status: 2 Anesthesia: MAC Risk of > 500 ml blood loss (7ml/kg in children): No Medications/Allergies Home Medications ?Medication ?Instructions ?Recorded ?Confirmed ?Last Taken ?Type epinephrine 0.3 mg/0.3 mL 0.3 mg (0.3 mL) IM Q4H PRN 11/20/21 12/29/24 Unknown Rx injection, auto-injector (EpiPen anaphylaxis #2 ea 2-[place]) ibuprofen 200 mg tablet (Advil) 200 mg PO Q6H PRN Pain 11/28/21 12/29/24 Unknown History vitamin B complex 1 tab PO DAILY 11/28/21 12/29/24 12/29/24 History ondansetron 4 mg disintegrating 4 mg PO Q8H PRN nausea and 08/05/24 12/29/24 Unknown Rx tablet vomiting #30 tabs albuterol sulfate 2.5 mg/3 mL 2.5 mg (3 mL) inhalation Q4H PRN 08/16/24 12/29/24 12/22/24 Rx (0.083 %) solution for nebulization shortness of breath or wheezing #75 mL nebulizers #1 ea 08/16/24 11/23/24 Unknown Rx cholecalciferol (vitamin D3) 125 125 mcg PO DAILY #30 caps 11/08/24 12/29/24 12/29/24 Rx mcg (5,000 unit) capsule lisinopril 5 mg tablet 5 mg PO DAILY #30 tabs 11/08/24 12/29/24 12/29/24 Rx montelukast 10 mg tablet 10 mg PO DAILY@2100 30 days #30 11/08/24 12/29/24 12/29/24 Rx (Singulair) tabs potassium chloride 10 mEq 10 meq PO DAILY@0600 30 days #30 11/08/24 12/29/24 12/29/24 Rx capsule,extended release caps pravastatin 20 mg tablet 20 mg PO DAILY #30 tabs 11/08/24 12/29/24 12/29/24 Rx venlafaxine 75 mg capsule,extended 75 mg PO QAM #30 caps 11/08/24 12/29/24 12/29/24 Rx release 24 hr (Effexor XR) ibandronate 150 mg tablet 150 mg PO .monthly #1 tab 11/23/24 12/29/24 12/15/24 Rx triamcinolone acetonide 0.1 % 1 applic topical BID PRN Rash 12/29/24 12/29/24 Unknown History topical cream Allergies Allergy/AdvReac Type Severity Reaction Status Date / Time codeine Allergy Unknown Unknown Verified 12/30/24 07:01 [facility] Anesthesia Medical History (Updated 11/23/24 @ 13:40 by DEBBY Mireles) Situational anxiety Vitamin D deficiency Non-Hodgkin lymphoma 2000 Environmental and seasonal allergies Hypertension Hyperlipemia Surgical History History of bilateral cataract extraction 2020 History of lymph node excision left neck 2000 and right axilla 2009 History of appendectomy History of cholecystectomy H/O: hysterectomy with BSO Family History Grandfather Diabetes Father CAD (coronary artery disease) Family/Other Leukemia Social History Smoking and tobacco/nicotine status: never used tobacco/nicotine Alcohol intake: never Substance/Drug Use: never Adopted: No Lives independently: Yes Household members: none Housing: House Marital status: Number of children: 2 Highest education level completed: High School Graduate service: No Current occupational status: employed Pets and animals: No Current gender identity: Female
[2024-12-30 08:05] VITALS: BP 129/77; PULSE 65; RESP 16; TEMP 36.1; O2SAT 98
[2024-12-30 08:24] VITALS: BP 152/77; PULSE 66; RESP 16; O2SAT 100
[2024-12-30 08:43] VITALS: BP 129/76; PULSE 67; RESP 18; O2SAT 98
--- NOTE | 2024-12-30 13:48 | ANE.PACU2 ---
Inpatient post-anesthesia follow up: Airway intact: Yes Vital signs: Temperature 97 F Pulse Rate 67 Respiratory Rate 18 Blood Pressure 129/76 Pulse Oximetry 98 Oxygen Delivery Me thod Room Air Oxygen Flow Rate Fraction of Inspir ed Oxygen Hydration adequate: Yes Nausea and vomiting: No Pain level: 1 Mental status: Baseline
== END 2024-12-30 08:57 | disposition home or self-care (01) ==
PROVIDERS: PCP Nurse Practitioner; Visit Provider Surgery
PROC: 0DJD8ZZ Inspection of Lower Intestinal Tract, Via Natural or Artificial Opening Endoscopic (ICD-10-PCS; CPT 45378; principal; 2024-12-30 07:40)
DX: Z12.11 Encounter for screening for malignant neoplasm of colon (principal); K57.30 Diverticulosis of large intestine without perforation or abscess without bleeding; D12.8 Benign neoplasm of rectum; D12.5 Benign neoplasm of sigmoid colon; D12.3 Benign neoplasm of transverse colon; I10 Essential (primary) hypertension; E78.5 Hyperlipidemia, unspecified; Z79.899 Other long term (current) drug therapy; Z88.5 Allergy status to narcotic agent
CPT/HCPCS: 45380; 88305; J2704; J7030

== ENCOUNTER → 2025-01-11 10:05 | Outpatient (BNVA) | payer MEDICARE, MEDICAID, SELFPAY | PROVIDERS: PCP Nurse Practitioner; Visit Provider Surgery | DX: Z09 Encounter for follow-up examination after completed treatment for conditions other than malignant neoplasm (principal) | CPT/HCPCS: 99213 ==

== ENCOUNTER → 2025-01-31 09:00 | Outpatient (BNVA) | payer MEDICARE, MEDICAID, SELFPAY | PROVIDERS: PCP Nurse Practitioner; Visit Provider Nurse Practitioner | DX: I10 Essential (primary) hypertension (principal); R73.9 Hyperglycemia, unspecified | CPT/HCPCS: 80053; 80061; 83036; 85025 ==

== ENCOUNTER → 2025-04-20 08:48 | Outpatient (BNVA) | payer MEDICARE, MEDICAID, SELFPAY | PROVIDERS: PCP Nurse Practitioner; Visit Provider Nurse Practitioner Family | DX: L82.1 Other seborrheic keratosis (principal); L81.4 Other melanin hyperpigmentation; L57.8 Other skin changes due to chronic exposure to nonionizing radiation; D22.39 Melanocytic nevi of other parts of face | CPT/HCPCS: 99213 ==

== ENCOUNTER → 2025-04-22 08:30 | Outpatient (BNVA) | payer MEDICARE, MEDICAID, SELFPAY | PROVIDERS: PCP Nurse Practitioner; Visit Provider Nurse Practitioner | DX: E11.65 Type 2 diabetes mellitus with hyperglycemia (principal) | CPT/HCPCS: 80053; 83036 ==

== ENCOUNTER 2025-06-14 11:59 | Outpatient (CLI) | payer MEDICARE, MEDICAID, SELFPAY ==
--- NOTE | 2025-06-14 12:00 | MM_ITS ---
WS: [id number] Bilateral screening 3D tomosynthesis digital mammogram, 06/14/2025 12:07 PM Clinical Data: SCREENING Comparison: 06/10/2024, 10/27/2020, 10/26/2019, 09/21/2018, 09/18/2017, 09/17/2016, 09/12/2015, 09/09/2014, 09/07/2013, 07/16/2012, 06/13/2011, 06/19/2010, 06/06/2010, 06/21/2009. Findings: No spiculated masses or clustered calcifications are seen. There are no secondary signs of carcinoma. MM/MM scr BI tomosynthesis [id number] Impression: Negative bilateral mammogram unchanged. Recommend annual screening mammograms. BIRADS: 1 - Negative. FOLLOW UP: 1 Year Follow-up DENSITY: There are scattered areas of fibroglandular density. The CAD photo checker was used
== END 2025-06-14 12:00 | disposition home or self-care (01) ==
LOC: MOBLMAM 12:00
PROVIDERS: PCP Nurse Practitioner; Visit Provider Nurse Practitioner
DX: Z12.31 Encounter for screening mammogram for malignant neoplasm of breast (principal); R92.323 Mammographic fibroglandular density, bilateral breasts
CPT/HCPCS: 77063; 77067